=== PATIENT | female | born 2000 | race Caucasian/White ===

== ENCOUNTER 2022-11-06 11:29 | Emergency (ER) | payer OTHER ==
[~2022-11-06] VITALS: Ht 149.9 cm; Wt 104.0 kg
[2022-11-06] MEDS ORDERED: ALBU8.5H (11:55)
[2022-11-06] MEDS ORDERED: ESCITALOPRAM PO (11:55)
[2022-11-06] MEDS ORDERED: FERR325T19 (11:55)
[2022-11-06] MEDS ORDERED: TRAZ-252 (11:55)
[2022-11-06] MEDS ORDERED: ASPIRIN 325 MG TAB PO ONE (12:10)
[2022-11-06] MEDS ORDERED: NS 500 ML IV ONE (12:15)
[2022-11-06 13:02] LABS: BASO % 0.1 % (0.0-1.0); HEMOGLOBIN 12.6 g/dl (12.0-15.5); LYMPH # 1.3 10^3/uL (1.5-5.0); LYMPH % 17.1 % (24.0-44.0); MEAN CORPUSCULAR HEMOGLOBIN 24.9 pg (27.0-33.0); MEAN CORPUSCULAR HGB CONC 31.5 g/dl (32.0-36.5); MEAN CORPUSCULAR VOLUME 79.1 fl (80.0-96.0); MONO # 0.7 10^3/uL (0.0-0.8); MONO % 9.2 % (2.0-8.0); NEUTROPHILS # 5.7 10^3/uL (1.5-8.5); NEUTROPHILS % 73.1 % (36.0-66.0); PLATELET COUNT, AUTOMATED 307 10^3/uL (150-450); RED BLOOD COUNT 5.06 10^6/uL (4.00-5.40); WHITE BLOOD COUNT 7.8 10^3/uL (4.0-10.0)
[2022-11-06 13:12] LABS: RSV AMPLIFICATION NEGATIVE (NEGATIVE)
[2022-11-06 13:19] LABS: LIPASE 27 U/L (12-53)
[2022-11-06 13:20] LABS: CK-MB VALUE MASS < 1.0 NG/ML (<3.6)
[2022-11-06 13:21] LABS: ALBUMIN 4.1 G/DL (3.2-5.2); ALKALINE PHOSPHATASE 67 U/L (46-116); ALT/SGPT 18 U/L (7.0-40); AST/SGOT 9 U/L (<34); BILIRUBIN,DIRECT 0.2 MG/DL (<0.4); BILIRUBIN,TOTAL 0.4 MG/DL (0.3-1.2); BLOOD UREA NITROGEN 12 MG/DL (9-23); CALCIUM LEVEL 8.6 MG/DL (8.5-10.1); CARBON DIOXIDE LEVEL 23 MMOL/L (20-31); CHLORIDE LEVEL 105 MMOL/L (98-107); CREATININE FOR GFR 0.66 MG/DL (0.55-1.30); GLUCOSE, FASTING 90 MG/DL (60-100); INR 1.03; POTASSIUM SERUM 3.8 MMOL/L (3.5-5.1); PROTHROMBIN TIME 13.7 SECONDS (12.5-14.5); SODIUM LEVEL 137 MMOL/L (136-145); TOTAL PROTEIN 7.7 G/DL (5.7-8.2)
[2022-11-06 13:22] LABS: CPK CREATINE PHOSPHOKINASE 109 U/L (34-145); MB/CK RELATIVE INDEX 0.91 (< OR =4); PARTIAL THROMBOPLASTIN TIME 31.7 SECONDS (24.8-34.2)
[2022-11-06 14:01] LABS: HCG, SERUM QUALITATIVE NEGATIVE (NEGATIVE)
[2022-11-06] MEDS ORDERED: ISOVUE-370 76% 100ML VIAL As Ordered ONE (14:06)
[2022-11-06 15:49] VITALS: BP 125/76
== END 2022-11-06 15:55 | disposition home or self-care (01) ==
LOC: M ED 11:29
DX: R07.9 Chest pain, unspecified (principal); R00.0 Tachycardia, unspecified; F51.01 Primary insomnia; F41.9 Anxiety disorder, unspecified; D64.9 Anemia, unspecified; Z79.52 Long term (current) use of systemic steroids; Z79.899 Other long term (current) drug therapy

== ENCOUNTER 2023-05-03 10:39 | Emergency (ER) | payer OTHER ==
[~2023-05-03] VITALS: Ht 149.9 cm; Wt 96.6 kg
[~2023-05-03 10:39] MED LIST: ALBU8.5H; ESCITALOPRAM PO; FERR325T19; TRAZ-252
[2023-05-03] MEDS: IBUPROFEN 600MG TAB PO ONE (12:22)
[2023-05-03 12:25] LABS: RSV AMPLIFICATION NEGATIVE (NEGATIVE)
[2023-05-03] MEDS ORDERED: AMOX875T2 PO (13:30)
[2023-05-03 13:45] VITALS: BP 119/70; TEMP 99.3; O2SAT 97
== END 2023-05-03 13:47 | disposition home or self-care (01) ==
LOC: M ED 10:39
DX: J02.0 Streptococcal pharyngitis (principal); F41.9 Anxiety disorder, unspecified; F32.A Depression, unspecified; Z79.2 Long term (current) use of antibiotics; Z79.52 Long term (current) use of systemic steroids; Z79.899 Other long term (current) drug therapy

== ENCOUNTER 2023-05-04 00:37 | Emergency (ER) | payer OTHER ==
[~2023-05-04] VITALS: Ht 149.9 cm; Wt 96.6 kg
[~2023-05-04 00:37] MED LIST changes: +AMOX875T2 PO
[2023-05-04 02:46] VITALS: BP 132/86; TEMP 98.8; O2SAT 100
== END 2023-05-04 05:34 | disposition left against medical advice (07) ==
LOC: M ED 00:37
DX: Z53.21 Procedure and treatment not carried out due to patient leaving prior to being seen by health care provider (principal)

== ENCOUNTER 2023-07-30 05:19 | Emergency (ER) | payer OTHER, SELFPAY ==
[~2023-07-30] VITALS: Ht 149.9 cm; Wt 96.1 kg
[2023-07-30 07:10] LABS: RSV AMPLIFICATION NEGATIVE (NEGATIVE)
[2023-07-30] MEDS ORDERED: IBUPROFEN 800 MG TAB PO ONE (07:25)
[2023-07-30] MEDS ORDERED: NS 1,000 ML IV ONE ×2 (07:35→09:35)
[2023-07-30] MEDS ORDERED: BENZONATATE 100MG CAPSULE PO ONE (07:35)
[2023-07-30] MEDS ORDERED: OSELTAMIVIR PHOSPHATE 75 MG CAP (TAMIFLU) PO ONE (07:35)
[2023-07-30] MEDS ORDERED: ONDANSETRON 4MG 2ML VIAL IV ONE (07:35)
[2023-07-30 08:07] LABS: BASO % 0.6 % (0.0-1.0); HEMATOCRIT 36.5 % (36.0-47.0); HEMOGLOBIN 11.9 g/dl (12.0-15.5); LYMPH # 0.2 10^3/uL (1.5-5.0); LYMPH % 4.1 % (24.0-44.0); MEAN CORPUSCULAR HEMOGLOBIN 26.4 pg (27.0-33.0); MEAN CORPUSCULAR HGB CONC 32.6 g/dl (32.0-36.5); MEAN CORPUSCULAR VOLUME 81.1 fl (80.0-96.0); MONO # 0.7 10^3/uL (0.0-0.8); MONO % 12.2 % (2.0-8.0); NEUTROPHILS # 4.5 10^3/uL (1.5-8.5); NEUTROPHILS % 82.4 % (36.0-66.0); PLATELET COUNT, AUTOMATED 264 10^3/uL (150-450); WHITE BLOOD COUNT 5.4 10^3/uL (4.0-10.0)
[2023-07-30 08:25] LABS: BLOOD UREA NITROGEN 6 MG/DL (9-23); CALCIUM LEVEL 8.6 MG/DL (8.5-10.1); CARBON DIOXIDE LEVEL 25 MMOL/L (20-31); CHLORIDE LEVEL 103 MMOL/L (98-107); CREATININE FOR GFR 0.62 MG/DL (0.55-1.30); GLUCOSE, FASTING 95 MG/DL (60-100); POTASSIUM SERUM 3.8 MMOL/L (3.5-5.1); SODIUM LEVEL 137 MMOL/L (136-145)
[2023-07-30] MEDS ORDERED: ONDA4TAB6 PO (10:33)
[2023-07-30] MEDS ORDERED: OSEL75CA PO (10:33)
[2023-07-30 10:46] VITALS: BP 100/70; TEMP 98.6; O2SAT 100
== END 2023-07-30 11:09 | disposition home or self-care (01) ==
LOC: M ED 05:19
DX: J09.X2 Influenza due to identified novel influenza A virus with other respiratory manifestations (principal); J45.909 Unspecified asthma, uncomplicated; R51.9 Headache, unspecified; Z79.52 Long term (current) use of systemic steroids; Z79.83 Long term (current) use of bisphosphonates; Z79.899 Other long term (current) drug therapy
CPT/HCPCS: 71045; 80048; 84702; 85025; 87631; 96361; 96374; 99284; J2405

== ENCOUNTER 2023-08-07 13:49 | Observation (INO) | payer SELFPAY ==
[~2023-08-07] VITALS: Ht 149.9 cm; Wt 95.9 kg
[~2023-08-07 13:49] MED LIST changes: -ALBU8.5H; +ALBU8.5H INH; -FERR325T19; +FERR325T19 PO; +ONDA4TAB6 PO; +OSEL75CA PO; -TRAZ-252; +TRAZ-252 PO
[2023-08-07] MEDS ORDERED: NS 1,000 ML IV ONE (14:35)
[2023-08-07] MEDS ORDERED: METOCLOPRAMIDE INJ 10MG/2ML VIAL IV ONE (14:40)
[2023-08-07 15:48] LABS: BASO % 0.2 % (0.0-1.0); HEMATOCRIT 36.8 % (36.0-47.0); LYMPH # 2.2 10^3/uL (1.5-5.0); LYMPH % 14.8 % (24.0-44.0); MEAN CORPUSCULAR HGB CONC 32.6 g/dl (32.0-36.5); MEAN CORPUSCULAR VOLUME 79.8 fl (80.0-96.0); MONO # 1.2 10^3/uL (0.0-0.8); MONO % 8.3 % (2.0-8.0); NEUTROPHILS # 11.1 10^3/uL (1.5-8.5); NEUTROPHILS % 76.4 % (36.0-66.0); PLATELET COUNT, AUTOMATED 340 10^3/uL (150-450); RED BLOOD COUNT 4.61 10^6/uL (4.00-5.40); WHITE BLOOD COUNT 14.5 10^3/uL (4.0-10.0)
[2023-08-07 16:45] LABS: ALBUMIN 3.6 G/DL (3.2-5.2); ALKALINE PHOSPHATASE 74 U/L (46-116); ALT/SGPT 117 U/L (7.0-40); AST/SGOT 31 U/L (<34); BILIRUBIN,DIRECT 0.2 MG/DL (<0.4); BILIRUBIN,TOTAL 0.5 MG/DL (0.3-1.2); BLOOD UREA NITROGEN 8 MG/DL (9-23); CALCIUM LEVEL 8.6 MG/DL (8.5-10.1); CARBON DIOXIDE LEVEL 27 MMOL/L (20-31); CHLORIDE LEVEL 103 MMOL/L (98-107); CPK CREATINE PHOSPHOKINASE 122 U/L (34-145); CREATININE FOR GFR 0.61 MG/DL (0.55-1.30); GLUCOSE, FASTING 90 MG/DL (60-100); LIPASE 45 U/L (12-53); POTASSIUM SERUM 3.9 MMOL/L (3.5-5.1); SODIUM LEVEL 139 MMOL/L (136-145); THYROID STIMULATING HORMONE 1.396 uIU/ML (0.48-4.17); TOTAL PROTEIN 7.6 G/DL (5.7-8.2)
[2023-08-07 16:58] LABS: HCG, SERUM QUALITATIVE NEGATIVE (NEGATIVE)
[2023-08-07] MEDS ORDERED: NS 1,000 ML IV SCH (17:05)
[2023-08-07] MEDS ORDERED: ISOVUE-370 76% 100ML VIAL As Ordered ONE (17:11)
[2023-08-07] MEDS ORDERED: cefTRIAXone SOD 2 GM in D5W MINI-BAG PLUS 50 ML IV ONE (18:20)
[2023-08-07] MEDS ORDERED: ONDA4TAB6 PO (18:51)
[2023-08-07] MEDS ORDERED: LEXA1TAB2 PO (18:51)
[2023-08-07] MEDS ORDERED: HOME MED LIST COMPLETE! XX SCH (18:55)
[2023-08-07] MEDS ORDERED: ONDANSETRON 4MG 2ML VIAL IV PRN (19:40)
[2023-08-07] MEDS ORDERED: ALBUTEROL 90 MCG/ACT 8GM HFA INHALER INH PRN (19:40)
[2023-08-07] MEDS ORDERED: guaiFENesin DM LIQ 10ML UD PO PRN (19:40)
[2023-08-07] MEDS ORDERED: ACETAMINOPHEN TAB 650MG DOSE (2X325MG) PO PRN (19:40)
[2023-08-07] MEDS ORDERED: CEPACOL LOZENGE PO PRN (19:40)
[2023-08-07 21:00] VITALS: BP 122/67; TEMP 99.7; O2SAT 100
[2023-08-07] MEDS ORDERED: traZODone 25MG PER 1/2 TABLET PO SCH (21:00)
[2023-08-07] MEDS: LR 1,000 ML IV SCH (21:23)
[2023-08-07] MEDS: AUGMENTIN 875 MG TAB PO SCH (21:32)
[2023-08-07] MEDS ORDERED: KETOROLAC 30 MG/ML 1ML VIAL IV ONE (23:40)
[2023-08-07 23:45] VITALS: TEMP 100.4
[2023-08-08] MEDS: LR 1,000 ML IV SCH (04:07)
[2023-08-08 04:09] VITALS: BP 113/65; TEMP 98.6; O2SAT 99
[2023-08-08] MEDS: AUGMENTIN 875 MG TAB PO SCH (08:29)
[2023-08-08] MEDS ORDERED: ESCITALOPRAM OXALATE 10 MG TAB (LEXAPRO) PO SCH (09:00)
[2023-08-08] MEDS ORDERED: FERROUS SULFATE 325MG TAB PO SCH (09:00)
[2023-08-08 09:27] LABS: BASO % 0.1 % (0.0-1.0); EOS % 0.1 % (0.0-3.0); HEMATOCRIT 32.2 % (36.0-47.0); HEMOGLOBIN 10.4 g/dl (12.0-15.5); LYMPH % 14.3 % (24.0-44.0); MEAN CORPUSCULAR HEMOGLOBIN 25.7 pg (27.0-33.0); MEAN CORPUSCULAR HGB CONC 32.3 g/dl (32.0-36.5); MEAN CORPUSCULAR VOLUME 79.7 fl (80.0-96.0); MONO # 1.5 10^3/uL (0.0-0.8); MONO % 10.8 % (2.0-8.0); NEUTROPHILS # 10.4 10^3/uL (1.5-8.5); NEUTROPHILS % 74.3 % (36.0-66.0); PLATELET COUNT, AUTOMATED 309 10^3/uL (150-450); RED BLOOD COUNT 4.04 10^6/uL (4.00-5.40)
[2023-08-08] MEDS ORDERED: ACET1TAB55 PO (09:29)
[2023-08-08] MEDS ORDERED: IBUP-1022 PO (09:29)
[2023-08-08] MEDS ORDERED: AMOX875T2 PO (09:29)
[2023-08-08 09:48] LABS: BLOOD UREA NITROGEN 7 MG/DL (9-23); CALCIUM LEVEL 8.4 MG/DL (8.5-10.1); CARBON DIOXIDE LEVEL 23 MMOL/L (20-31); CHLORIDE LEVEL 104 MMOL/L (98-107); CREATININE FOR GFR 0.54 MG/DL (0.55-1.30); GLUCOSE, FASTING 110 MG/DL (60-100); MAGNESIUM LEVEL 1.9 MG/DL (1.8-2.4); POTASSIUM SERUM 3.6 MMOL/L (3.5-5.1); SODIUM LEVEL 136 MMOL/L (136-145)
[2023-08-08] MEDS ORDERED: ONDA-83 PO (09:57)
== END 2023-08-08 11:18 | disposition home or self-care (01) ==
LOC: M ED 13:49 → INTOOBSV 19:38 → M ED INP 19:38 → M MSPAV 20:58
PROVIDERS: ADMIT Internal Medicine; ATTEND Internal Medicine
DX: R00.0 Tachycardia, unspecified (principal); H65.01 Acute serous otitis media, right ear; J01.90 Acute sinusitis, unspecified; J45.909 Unspecified asthma, uncomplicated; F41.9 Anxiety disorder, unspecified; F32.A Depression, unspecified; Z79.899 Other long term (current) drug therapy
CPT/HCPCS: 36415; 70450; 70491; 71275; 74177; 80048; 80076; 81001; 82550; 83605; 83690; 83735; 84443; 84703; 85025; 87040; 87486; 87581; 87633; 87798; 87880; 93005; 93041; 94760; 96361; 96365; 96375; 99285; J0696; J1885; J2405; J2765; Q9967

== ENCOUNTER → 2023-12-19 | Outpatient (CLI) | payer OTHER ==
[~2023-12-19] MED LIST changes: +ACET1TAB55 PO; +IBUP-1022 PO; +LEXA1TAB2 PO; +ONDA-83 PO
[2023-12-19 14:07] LABS: HEMATOCRIT 36.3 % (36.0-47.0); HEMOGLOBIN 11.8 g/dl (12.0-15.5); MEAN CORPUSCULAR HEMOGLOBIN 25.3 pg (27.0-33.0); MEAN CORPUSCULAR HGB CONC 32.5 g/dl (32.0-36.5); MEAN CORPUSCULAR VOLUME 77.9 fl (80.0-96.0); PLATELET COUNT, AUTOMATED 305 10^3/uL (150-450); RED BLOOD COUNT 4.66 10^6/uL (4.00-5.40); WHITE BLOOD COUNT 9.1 10^3/uL (4.0-10.0)
[2023-12-19 15:14] LABS: HIV 1&2 SCREEN NEGATIVE (NEGATIVE)
[2023-12-19 15:22] LABS: HEPATITIS C VIRUS ABY INDEX < 0.02 INDEX (<0.8)
[2023-12-19 15:29] LABS: GC DNA AMPLIFICATION NEGATIVE (NEGATIVE)
== END ==
LOC: M PLALAB 10:29
PROVIDERS: ATTEND Advanced Practice Midwife
DX: Z34.01 Encounter for supervision of normal first pregnancy, first trimester (principal)

== ENCOUNTER 2024-01-25 19:24 | Emergency (ER) | payer OTHER ==
[~2024-01-25] VITALS: Ht 149.9 cm; Wt 93.5 kg
[2024-01-25] MEDS ORDERED: PREN1TAB18 PO (19:30)
[2024-01-25] MEDS ORDERED: HEAL1TAB6 PO (19:30)
[2024-01-25 21:18] LABS: BASO % 0.3 % (0.0-1.0); EOS % 0.4 % (0.0-3.0); HEMATOCRIT 35.9 % (36.0-47.0); LYMPH # 2.1 10^3/uL (1.5-5.0); LYMPH % 19.3 % (24.0-44.0); MEAN CORPUSCULAR HGB CONC 33.4 g/dl (32.0-36.5); MEAN CORPUSCULAR VOLUME 77.9 fl (80.0-96.0); MONO % 9.1 % (2.0-8.0); NEUTROPHILS # 7.6 10^3/uL (1.5-8.5); NEUTROPHILS % 70.5 % (36.0-66.0); PLATELET COUNT, AUTOMATED 309 10^3/uL (150-450); RED BLOOD COUNT 4.61 10^6/uL (4.00-5.40); WHITE BLOOD COUNT 10.7 10^3/uL (4.0-10.0)
[2024-01-25 21:42] LABS: ALBUMIN 3.1 G/DL (3.2-5.2); ALKALINE PHOSPHATASE 58 U/L (46-116); ALT/SGPT 19 U/L (7.0-40); AST/SGOT 14 U/L (<34); BILIRUBIN,DIRECT < 0.1 MG/DL (<0.4); BILIRUBIN,TOTAL 0.2 MG/DL (0.3-1.2); BLOOD UREA NITROGEN 7 MG/DL (9-23); CALCIUM LEVEL 8.9 MG/DL (8.5-10.1); CARBON DIOXIDE LEVEL 24 MMOL/L (20-31); CHLORIDE LEVEL 104 MMOL/L (98-107); CREATININE FOR GFR 0.49 MG/DL (0.55-1.30); GLOMERULAR FILTRATION RATE > 60.0 (>60); GLUCOSE, FASTING 78 MG/DL (60-100); SODIUM LEVEL 137 MMOL/L (136-145); TOTAL PROTEIN 7.1 G/DL (5.7-8.2)
[2024-01-25 23:08] LABS: HCG, SERUM QUANTITATIVE 39019.7 MIU/ML (<4.2)
[2024-01-25 23:11] VITALS: BP 129/77; TEMP 98.2; O2SAT 99
== END 2024-01-25 23:13 | disposition home or self-care (01) ==
LOC: M ED 19:24
DX: O26.892 Other specified pregnancy related conditions, second trimester (principal); R10.2 Pelvic and perineal pain; F41.9 Anxiety disorder, unspecified; F32.A Depression, unspecified; Z3A.16 16 weeks gestation of pregnancy; Z79.810 Long term (current) use of selective estrogen receptor modulators (SERMs)

== ENCOUNTER → 2024-02-07 | Outpatient (CLI) | payer OTHER ==
[~2024-02-07] MED LIST changes: +HEAL1TAB6 PO; +PREN1TAB18 PO
== END ==
LOC: M WHC 12:58
PROVIDERS: ATTEND Obstetrics & Gynecology
DX: Z34.92 Encounter for supervision of normal pregnancy, unspecified, second trimester (principal); Z3A.18 18 weeks gestation of pregnancy

== ENCOUNTER 2024-03-19 20:38 | Emergency (ER) | payer OTHER ==
[2024-03-19 20:38] VITALS: BP 135/86; TEMP 97.9; O2SAT 100
[~2024-03-19 20:38] MED LIST changes: +ONDA-282 PO; -ONDA4TAB6 PO
[2024-03-19] MEDS ORDERED: ESCI5SOL3 PO (21:07)
[2024-03-19] MEDS ORDERED: ONDANSETRON 4MG 2ML VIAL IV PRN (21:15)
[2024-03-19] MEDS ORDERED: LR 1,000 ML IV ONE (21:15)
[2024-03-19] MEDS ORDERED: MORPHINE 4 MG/ML 1ML VIAL IV ONE (22:00)
== END 2024-03-19 20:40 | disposition admitted as inpatient to this hospital (09) ==
LOC: M ED 20:38
DX: Z53.21 Procedure and treatment not carried out due to patient leaving prior to being seen by health care provider (principal)

== ENCOUNTER 2024-03-19 20:52 | Outpatient (CLI) | payer OTHER ==
[~2024-03-19] VITALS: Ht 152.4 cm; Wt 97.0 kg
[2024-03-19 21:03] VITALS: BP 93/50; O2SAT 99
[2024-03-19] MEDS ORDERED: ESCI5SOL3 PO (21:07)
[2024-03-19] MEDS ORDERED: HOME MED LIST COMPLETE! XX SCH (21:10)
[2024-03-19] MEDS: LR 1,000 ML IV ONE (21:37)
[2024-03-19] MEDS: ONDANSETRON 4MG 2ML VIAL IV SCH (21:37)
[2024-03-19 21:56] LABS: AMORPHOUS SEDIMENT SMALL (NEGATIVE); APPEARANCE, URINE HAZY (CLEAR); BACTERIA, URINE AUTO NEGATIVE (NEGATIVE); BILIRUBIN, URINE AUTO NEGATIVE (NEGATIVE); BLOOD, URINE BLOOD 2+ (NEGATIVE); COLOR, URINE YELLOW (YELLOW); GLUCOSE, URINE (UA) AUTO NEGATIVE (NEGATIVE); KETONE, URINE AUTO NEGATIVE (NEGATIVE); LEUKOCYTE ESTERASE, URINE AUTO NEGATIVE (NEGATIVE); MUCUS, URINE SMALL (NEGATIVE); NITRITE, URINE AUTO NEGATIVE (NEGATIVE); PROTEIN, URINE AUTO NEGATIVE (NEGATIVE); RBC, URINE AUTO 101 /HPF (0-3); SPECIFIC GRAVITY URINE AUTO 1.018 (1.002-1.035); SQUAMOUS EPITHELIAL CELL UR AU 5 /HPF (0-6); WBC, URINE AUTO 5 /HPF (0-3)
[2024-03-19 21:59] LABS: HEMOGLOBIN 10.7 g/dl (12.0-15.5); MEAN CORPUSCULAR HEMOGLOBIN 25.8 pg (27.0-33.0); MEAN CORPUSCULAR HGB CONC 33.4 g/dl (32.0-36.5); MEAN CORPUSCULAR VOLUME 77.3 fl (80.0-96.0); PLATELET COUNT, AUTOMATED 364 10^3/uL (150-450); RED BLOOD COUNT 4.14 10^6/uL (4.00-5.40)
[2024-03-19] MEDS ORDERED: MORPHINE 4 MG/ML 1ML VIAL IV PRN (22:00)
[2024-03-19 22:14] LABS: ALKALINE PHOSPHATASE 79 U/L (46-116); ALT/SGPT 21 U/L (7.0-40); AST/SGOT 13 U/L (<34); BILIRUBIN,TOTAL 0.2 MG/DL (0.3-1.2); BLOOD UREA NITROGEN 7 MG/DL (9-23); CALCIUM LEVEL 9.1 MG/DL (8.5-10.1); CARBON DIOXIDE LEVEL 22 MMOL/L (20-31); CHLORIDE LEVEL 108 MMOL/L (98-107); CREATININE FOR GFR 0.51 MG/DL (0.55-1.30); GLOMERULAR FILTRATION RATE > 60.0 (>60); GLUCOSE, FASTING 86 MG/DL (60-100); SODIUM LEVEL 138 MMOL/L (136-145); TOTAL PROTEIN 6.9 G/DL (5.7-8.2)
[2024-03-19] MEDS: MORPHINE 4 MG/ML 1ML VIAL IV PRN (22:14)
[2024-03-19 22:46] VITALS: BP 120/58
[2024-03-19] MEDS ORDERED: BUTORPHANOL 2 MG/ML 1ML VIAL IV ONE (23:25)
[2024-03-19] MEDS ORDERED: PROMETHAZINE 25MG/ML 1ML VIAL IV ONE (23:25)
[2024-03-20 04:08] VITALS: BP 93/54
[2024-03-20 08:18] VITALS: BP 101/58
== END 2024-03-20 11:12 | disposition home or self-care (01) ==
LOC: M LDO 20:52
PROVIDERS: ATTEND Advanced Practice Midwife
DX: O26.892 Other specified pregnancy related conditions, second trimester (principal); O99.212 Obesity complicating pregnancy, second trimester; O99.342 Other mental disorders complicating pregnancy, second trimester; O99.512 Diseases of the respiratory system complicating pregnancy, second trimester; R10.32 Left lower quadrant pain; E66.9 Obesity, unspecified; F41.9 Anxiety disorder, unspecified; F32.A Depression, unspecified; J45.909 Unspecified asthma, uncomplicated; Z3A.24 24 weeks gestation of pregnancy
CPT/HCPCS: 59025; 76775; 80053; 81001; 85027; 96374; 96375; G0463; J2405

== ENCOUNTER → 2024-03-21 | Outpatient (CLI) | payer OTHER ==
[~2024-03-21] MED LIST changes: +ESCI5SOL3 PO
== END ==
LOC: M WHC 11:16
PROVIDERS: ATTEND Advanced Practice Midwife
DX: Z34.02 Encounter for supervision of normal first pregnancy, second trimester (principal)

== ENCOUNTER → 2024-04-05 | Outpatient (CLI) | payer OTHER ==
[2024-04-05 17:31] LABS: HEMOGLOBIN 10.4 g/dl (12.0-15.5); MEAN CORPUSCULAR HEMOGLOBIN 25.7 pg (27.0-33.0); MEAN CORPUSCULAR HGB CONC 32.5 g/dl (32.0-36.5); PLATELET COUNT, AUTOMATED 358 10^3/uL (150-450); RED BLOOD COUNT 4.05 10^6/uL (4.00-5.40); WHITE BLOOD COUNT 12.1 10^3/uL (4.0-10.0)
== END ==
LOC: M PLALAB 14:56
PROVIDERS: ATTEND Advanced Practice Midwife
DX: Z34.02 Encounter for supervision of normal first pregnancy, second trimester (principal)

== ENCOUNTER 2024-04-14 23:07 | Outpatient (CLI) | payer OTHER ==
[~2024-04-14] VITALS: Ht 149.9 cm; Wt 95.0 kg
[2024-04-14 23:18] VITALS: BP 119/71
[2024-04-15 00:20] LABS: HEMATOCRIT 32.6 % (36.0-47.0); HEMOGLOBIN 10.8 g/dl (12.0-15.5); MEAN CORPUSCULAR HEMOGLOBIN 25.9 pg (27.0-33.0); MEAN CORPUSCULAR HGB CONC 33.1 g/dl (32.0-36.5); MEAN CORPUSCULAR VOLUME 78.2 fl (80.0-96.0); PLATELET COUNT, AUTOMATED 380 10^3/uL (150-450); RED BLOOD COUNT 4.17 10^6/uL (4.00-5.40); WHITE BLOOD COUNT 12.7 10^3/uL (4.0-10.0)
[2024-04-15] MEDS: PROMETHAZINE 25MG/ML 1ML VIAL IV ONE (00:20)
[2024-04-15] MEDS: MORPHINE 4 MG/ML 1ML VIAL IV ONE (00:20)
[2024-04-15 00:48] LABS: APPEARANCE, URINE HAZY (CLEAR); BACTERIA, URINE AUTO NEGATIVE (NEGATIVE); BILIRUBIN, URINE AUTO NEGATIVE (NEGATIVE); BLOOD, URINE BLOOD NEGATIVE (NEGATIVE); COLOR, URINE YELLOW (YELLOW); GLUCOSE, URINE (UA) AUTO NEGATIVE (NEGATIVE); KETONE, URINE AUTO 1+ mg/dL (NEGATIVE); LEUKOCYTE ESTERASE, URINE AUTO TRACE (NEGATIVE); MUCUS, URINE SMALL (NEGATIVE); NITRITE, URINE AUTO NEGATIVE (NEGATIVE); PROTEIN, URINE AUTO NEGATIVE (NEGATIVE); RBC, URINE AUTO 19 /HPF (0-3); SPECIFIC GRAVITY URINE AUTO 1.013 (1.002-1.035); SQUAMOUS EPITHELIAL CELL UR AU 5 /HPF (0-6); UROBILINOGEN, URINE AUTO 0.2 mg/dL (0.0-2.0); WBC, URINE AUTO 12 /HPF (0-3)
[2024-04-15] MEDS ORDERED: MACR100C43 PO (05:02)
== END 2024-04-15 05:00 | disposition home or self-care (01) ==
LOC: M LDO 23:07
PROVIDERS: ATTEND Obstetrics & Gynecology
DX: O26.893 Other specified pregnancy related conditions, third trimester (principal); M54.89 Other dorsalgia; Z87.442 Personal history of urinary calculi; Z3A.28 28 weeks gestation of pregnancy
CPT/HCPCS: 59025; 76775; 81001; 85027; G0463; J2550

== ENCOUNTER 2024-06-04 01:35 | Outpatient (CLI) | payer OTHER ==
[~2024-06-04] VITALS: Ht 149.9 cm; Wt 97.3 kg
[~2024-06-04 01:35] MED LIST changes: +MACR100C43 PO
[2024-06-04] MEDS ORDERED: ACET500P3 PO (01:52)
[2024-06-04] MEDS ORDERED: HOME MED LIST COMPLETE! XX SCH (01:55)
[2024-06-04 01:58] VITALS: BP 116/70
[2024-06-04 02:58] LABS: HEMATOCRIT 33.2 % (36.0-47.0); HEMOGLOBIN 10.6 g/dl (12.0-15.5); MEAN CORPUSCULAR HEMOGLOBIN 24.3 pg (27.0-33.0); MEAN CORPUSCULAR HGB CONC 31.9 g/dl (32.0-36.5); MEAN CORPUSCULAR VOLUME 76.1 fl (80.0-96.0); PLATELET COUNT, AUTOMATED 369 10^3/uL (150-450); RED BLOOD COUNT 4.36 10^6/uL (4.00-5.40); WHITE BLOOD COUNT 9.2 10^3/uL (4.0-10.0)
[2024-06-04] MEDS: PROMETHAZINE 25MG/ML 1ML VIAL IV ONE (03:15)
[2024-06-04] MEDS: MORPHINE 4 MG/ML 1ML VIAL IV ONE (03:16)
[2024-06-04] MEDS: LR 1,000 ML IV ONE (03:17)
[2024-06-04 03:20] LABS: ALBUMIN 2.6 G/DL (3.2-5.2); ALKALINE PHOSPHATASE 134 U/L (46-116); ALT/SGPT 32 U/L (7.0-40); AST/SGOT 23 U/L (<34); BILIRUBIN,TOTAL 0.2 MG/DL (0.3-1.2); BLOOD UREA NITROGEN 7 MG/DL (9-23); CALCIUM LEVEL 9.3 MG/DL (8.5-10.1); CARBON DIOXIDE LEVEL 20 MMOL/L (20-31); CHLORIDE LEVEL 110 MMOL/L (98-107); CREATININE FOR GFR 0.48 MG/DL (0.55-1.30); GLOMERULAR FILTRATION RATE > 60.0 (>60); GLUCOSE, FASTING 114 MG/DL (60-100); POTASSIUM SERUM 4.2 MMOL/L (3.5-5.1); SODIUM LEVEL 138 MMOL/L (136-145); TOTAL PROTEIN 6.7 G/DL (5.7-8.2)
[2024-06-04 06:01] VITALS: BP 103/64
== END 2024-06-04 10:50 | disposition home or self-care (01) ==
LOC: M LDO 01:35
PROVIDERS: ATTEND Advanced Practice Midwife
DX: O26.833 Pregnancy related renal disease, third trimester (principal); O99.513 Diseases of the respiratory system complicating pregnancy, third trimester; O99.343 Other mental disorders complicating pregnancy, third trimester; N20.0 Calculus of kidney; F41.9 Anxiety disorder, unspecified; J45.909 Unspecified asthma, uncomplicated; Z3A.35 35 weeks gestation of pregnancy
CPT/HCPCS: 59025; 76775; 76815; 76817; 76820; 80053; 81001; 85027; 87081; 96374; 96376; G0463; J2550

== ENCOUNTER 2024-07-06 15:37 | Inpatient (IN) | payer OTHER ==
[~2024-07-06] VITALS: Ht 149.9 cm; Wt 98.9 kg
[~2024-07-06 15:37] MED LIST changes: +ACET500P3 PO
[2024-07-06 15:56] VITALS: BP 130/82
[2024-07-06] MEDS ORDERED: HOME MED LIST COMPLETE! XX SCH (16:20)
[2024-07-06] MEDS ORDERED: TRANEXAMIC ACID INJection 1,000 MG in NS 100 ML IV PRN (17:35)
[2024-07-06] MEDS ORDERED: OXYTOCIN DRIP 30 UNITS in IV 1 EA IV PRN (17:35)
[2024-07-06] MEDS ORDERED: LIDOCAINE 1% MDV 20ML VIAL INFIL PRN (17:35)
[2024-07-06] MEDS ORDERED: METHYLERGONOVINE MALEATE 0.2MG/ML 1ML VIAL IM PRN (17:35)
[2024-07-06] MEDS: miSOPROStol 50MCG 1/2 TABLET PO SCH (17:45)
[2024-07-06 18:11] LABS: HEMATOCRIT 35.5 % (36.0-47.0); HEMOGLOBIN 11.2 g/dl (12.0-15.5); MEAN CORPUSCULAR HEMOGLOBIN 23.3 pg (27.0-33.0); MEAN CORPUSCULAR HGB CONC 31.5 g/dl (32.0-36.5); MEAN CORPUSCULAR VOLUME 73.8 fl (80.0-96.0); PLATELET COUNT, AUTOMATED 371 10^3/uL (150-450); RED BLOOD COUNT 4.81 10^6/uL (4.00-5.40); WHITE BLOOD COUNT 10.4 10^3/uL (4.0-10.0)
[2024-07-06 19:25] LABS: HEPATITIS C VIRUS ABY INDEX 0.03 INDEX (<0.8)
[2024-07-06 21:45] VITALS: BP 118/71
[2024-07-06 22:50] VITALS: BP 116/71
[2024-07-07] VITALS (47 sets, daily range): BP systolic 97–138; BP diastolic 55–87; TEMP 97.2; O2SAT 97
[2024-07-07] MEDS: BUTORPHANOL 2 MG/ML 1ML VIAL IV ONE (01:57)
[2024-07-07] MEDS: PROMETHAZINE 25MG/ML 1ML VIAL IV ONE (01:57)
[2024-07-07] MEDS ORDERED: diphenhydrAMINE 50MG/ML VIAL IV PRN ×2 (09:55→21:00)
[2024-07-07] MEDS ORDERED: EPIDURAL/PCA KEYS XX PRN (09:55)
[2024-07-07] MEDS ORDERED: ONDANSETRON 4MG 2ML VIAL IV PRN (09:55)
[2024-07-07] MEDS ORDERED: LR 500 ML IV PRN (09:55)
[2024-07-07] MEDS ORDERED: NALOXONE INJ 0.4MG/1ML VIAL IV PRN ×3 (09:55→21:00)
[2024-07-07] MEDS: FENTANYL/ROPIVACAINE/NACL BAG 100 ML EPIDURAL SCH (10:35)
[2024-07-07] MEDS: LR 1,000 ML IV SCH (11:29)
[2024-07-07] MEDS: OXYTOCIN DRIP 30 UNITS in IV 1 EA IV SCH ×2 (11:29→21:55)
[2024-07-07] MEDS: ePHEDrine SULFATE 25 MG/5 ML(5MG/ML) SYRINGE IVP PRN (12:31)
[2024-07-07] MEDS: ACETAMINOPHEN 500 MG TAB PO PRN (17:40)
[2024-07-07] MEDS: AZITHROMYCIN INJ 500 MG, VIAL MATE ADAPTER 1 EACH in NS 250 ML IV ONE (20:15)
[2024-07-07] MEDS: ceFAZolin SOD 2 GM in IV 1 EA IV ONE (20:15)
[2024-07-07] MEDS: BICITRA 30ML SOLN UDC PO ONE (20:15)
[2024-07-07] MEDS: NORCO, ANEXSIA 5/325MG TABLET (HYDROcodone/ACETAMINOPHEN) PO ONE (21:00)
[2024-07-07] MEDS: SLF 3 ML SYR IV SCH (21:00)
[2024-07-07] MEDS ORDERED: METOCLOPRAMIDE INJ 10MG/2ML VIAL IV PRN (21:00)
[2024-07-07] MEDS ORDERED: **NOTE PATIENT COMMENT** MISC XX SCH (21:00)
[2024-07-07] MEDS ORDERED: LIDOCAINE 2% W/EPINEPHRINE 20ML VIAL **PRES FREE As Ordered ONE (21:15)
[2024-07-07] MEDS ORDERED: OXYTOCIN 30UNITS IN 0.9% NaCl 500ML IV BAG As Ordered ONE (21:15)
[2024-07-07] MEDS ORDERED: MORPHINE PRES-FREE INJ 10 MG/10 ML VIAL As Ordered ONE (21:15)
[2024-07-07] MEDS ORDERED: ESMOLOL INJ 100MG/10ML VIAL As Ordered ONE (21:15)
[2024-07-07] MEDS ORDERED: KETOROLAC 60MG 2ML VIAL As Ordered ONE (21:15)
[2024-07-07] MEDS ORDERED: ACETAMINOPHEN 1000MG 100ML IV BAG As Ordered ONE (21:15)
[2024-07-07] MEDS ORDERED: fentaNYL 100 MCG/2 ML INJECTION As Ordered ONE (21:15)
[2024-07-07] MEDS ORDERED: ONDANSETRON 4MG 2ML VIAL As Ordered ONE (21:15)
[2024-07-07 21:26] LABS: CORD GAS ABE A -5.7; CORD GAS HCO3 A 21.9 MMOL/L; CORD GAS HCO3 V 20.2 MMOL/L; CORD GAS O2 SAT A 16.8 %; CORD GAS O2 SAT V 40.8 %; CORD GAS PCO2 A 50.8 mmHg; CORD GAS PCO2 V 41.9 mmHg; CORD GAS PH A 7.252 UNITS; CORD GAS PH V 7.3 UNITS; CORD GAS PO2 V 20.2 mmHg; CORD GAS SBC A 18.1 MMOL/L; CORD GAS SBC V 18.4 MMOL/L; CORD GAS TCO2 A 23.4 MMOL/L; CORD GAS TCO2 V 21.4 MMOL/L
[2024-07-07] MEDS ORDERED: SIMETHICONE 80MG CHEW TAB PO PRN (21:55)
[2024-07-07] MEDS ORDERED: RHOGAM 300MCG (1500IU) INJ IM SCH (21:55)
[2024-07-07] MEDS ORDERED: oxyCODONE 5MG TAB PO PRN (21:55)
[2024-07-08] VITALS (9 sets, daily range): BP systolic 102–130; BP diastolic 56–79; O2SAT 95–100
[2024-07-08] MEDS: ONDANSETRON 4MG 2ML VIAL IV PRN (00:07)
[2024-07-08] MEDS: LR 1,000 ML IV SCH (01:55)
[2024-07-08] MEDS: ACETAMINOPHEN 500 MG TAB PO SCH (01:58)
[2024-07-08] MEDS: KETOROLAC 30 MG/ML 1ML VIAL IV SCH (04:47)
[2024-07-08 07:19] LABS: HEMATOCRIT 29.9 % (36.0-47.0); HEMOGLOBIN 9.7 g/dl (12.0-15.5); MEAN CORPUSCULAR HEMOGLOBIN 24.1 pg (27.0-33.0); MEAN CORPUSCULAR HGB CONC 32.4 g/dl (32.0-36.5); MEAN CORPUSCULAR VOLUME 74.2 fl (80.0-96.0); PLATELET COUNT, AUTOMATED 338 10^3/uL (150-450); RED BLOOD COUNT 4.03 10^6/uL (4.00-5.40); WHITE BLOOD COUNT 19.8 10^3/uL (4.0-10.0)
[2024-07-08] MEDS: PRENATAL VITAMINS CHEWABLE TABLET PO SCH (10:35)
[2024-07-08] MEDS ORDERED: IBUP-1022 PO (11:42)
[2024-07-08] MEDS ORDERED: ACET-683 PO (11:42)
[2024-07-08] MEDS ORDERED: COLA100C5 PO (11:42)
[2024-07-08] MEDS ORDERED: OXYC-517 PO (11:42)
[2024-07-08] MEDS ORDERED: METOCLOPRAMIDE INJ 10MG/2ML VIAL IV PRN (21:00)
[2024-07-08] MEDS ORDERED: ONDANSETRON 4MG 2ML VIAL IV PRN (21:00)
[2024-07-08] MEDS: oxyCODONE 5MG TAB PO PRN (21:04)
[2024-07-08] MEDS: IBUPROFEN 600MG TAB PO SCH (23:49)
[2024-07-09 02:00] VITALS: BP 122/69; O2SAT 99
[2024-07-09 05:25] VITALS: BP 130/87; O2SAT 100
[2024-07-09] MEDS ORDERED: MEASLES,MUMPS,RUBELLA VACCINE INJ (MMR-II) SC.IMMUN ONE (09:00)
[2024-07-09] MEDS: DOCUSATE SODIUM 100MG CAPSULE PO PRN (09:51)
[2024-07-09 10:00] VITALS: BP 111/76; O2SAT 95
== END 2024-07-09 13:00 | disposition home or self-care (01) | DRG 540 ==
LOC: M LDO 15:37 → M LDI 17:11 → M OBS 07-07 23:26
PROVIDERS: ADMIT Obstetrics & Gynecology; ATTEND Obstetrics & Gynecology
PROC: 3E0P7VZ Introduction of Hormone into Female Reproductive, Via Natural or Artificial Opening (ICD-10-PCS; 2024-07-06)
PROC: 3E033VJ Introduction of Other Hormone into Peripheral Vein, Percutaneous Approach (ICD-10-PCS; 2024-07-06)
PROC: 10D00Z1 Extraction of Products of Conception, Low, Open Approach (ICD-10-PCS; principal; 2024-07-07 20:16)
DX: O64.8XX0 Obstructed labor due to other malposition and malpresentation, not applicable or unspecified (principal); O76 Abnormality in fetal heart rate and rhythm complicating labor and delivery; Z37.0 Single live birth; Z3A.40 40 weeks gestation of pregnancy

== ENCOUNTER 2024-07-23 17:02 | Emergency (ER) | payer MEDICAID, OTHER ==
[~2024-07-23] VITALS: Ht 149.9 cm; Wt 89.3 kg
[~2024-07-23 17:02] MED LIST changes: +ACET-683 PO; +COLA100C5 PO; +OXYC-517 PO
[2024-07-23 18:41] LABS: BASO # 0.1 10^3/uL (0.0-0.2); BASO % 1.4 % (0.0-1.0); EOS # 0.2 10^3/uL (0.0-0.5); EOS % 3.2 % (0.0-3.0); HEMATOCRIT 37.6 % (36.0-47.0); HEMOGLOBIN 11.4 g/dl (12.0-15.5); LYMPH # 2.3 10^3/uL (1.5-5.0); LYMPH % 34.9 % (24.0-44.0); MEAN CORPUSCULAR HEMOGLOBIN 22.7 pg (27.0-33.0); MEAN CORPUSCULAR HGB CONC 30.3 g/dl (32.0-36.5); MEAN CORPUSCULAR VOLUME 74.9 fl (80.0-96.0); MONO # 0.6 10^3/uL (0.0-0.8); MONO % 9.1 % (2.0-8.0); NEUTROPHILS # 3.3 10^3/uL (1.5-8.5); NEUTROPHILS % 51.1 % (36.0-66.0); PLATELET COUNT, AUTOMATED 497 10^3/uL (150-450); RED BLOOD COUNT 5.02 10^6/uL (4.00-5.40); WHITE BLOOD COUNT 6.5 10^3/uL (4.0-10.0)
[2024-07-23 18:55] LABS: ALBUMIN 3.4 G/DL (3.2-5.2); ALKALINE PHOSPHATASE 104 U/L (35-104); ALT/SGPT 14 U/L (7.0-40); AST/SGOT 9 U/L (<34); BILIRUBIN,DIRECT < 0.1 MG/DL (<0.4); BILIRUBIN,TOTAL 0.2 MG/DL (0.3-1.2); BLOOD UREA NITROGEN 12 MG/DL (9-23); CALCIUM LEVEL 9.8 MG/DL (8.5-10.1); CARBON DIOXIDE LEVEL 27 MMOL/L (20-31); CHLORIDE LEVEL 106 MMOL/L (98-107); CREATININE FOR GFR 0.69 MG/DL (0.55-1.30); GLOMERULAR FILTRATION RATE > 60.0 (>60); GLUCOSE, FASTING 84 MG/DL (60-100); POTASSIUM SERUM 4.6 MMOL/L (3.5-5.1); SODIUM LEVEL 139 MMOL/L (136-145); TOTAL PROTEIN 7.8 G/DL (5.7-8.2)
[2024-07-23 19:59] LABS: BASO # 0.1 10^3/uL (0.0-0.2); EOS # 0.2 10^3/uL (0.0-0.5); EOS % 2.8 % (0.0-3.0); HEMATOCRIT 41.2 % (36.0-47.0); HEMOGLOBIN 12.7 g/dl (12.0-15.5); LYMPH # 2.2 10^3/uL (1.5-5.0); MEAN CORPUSCULAR HEMOGLOBIN 22.8 pg (27.0-33.0); MEAN CORPUSCULAR HGB CONC 30.8 g/dl (32.0-36.5); MONO # 0.5 10^3/uL (0.0-0.8); MONO % 8.2 % (2.0-8.0); NEUTROPHILS # 2.9 10^3/uL (1.5-8.5); NEUTROPHILS % 49.8 % (36.0-66.0); PLATELET COUNT, AUTOMATED 523 10^3/uL (150-450); RED BLOOD COUNT 5.57 10^6/uL (4.00-5.40); WHITE BLOOD COUNT 5.7 10^3/uL (4.0-10.0)
[2024-07-23 21:35] LABS: ALBUMIN 3.6 G/DL (3.2-5.2); ALKALINE PHOSPHATASE 97 U/L (35-104); ALT/SGPT 12 U/L (7.0-40); AST/SGOT 12 U/L (<34); BILIRUBIN,DIRECT < 0.1 MG/DL (<0.4); BILIRUBIN,TOTAL 0.2 MG/DL (0.3-1.2); BLOOD UREA NITROGEN 11 MG/DL (9-23); CALCIUM LEVEL 9.6 MG/DL (8.5-10.1); CARBON DIOXIDE LEVEL 25 MMOL/L (20-31); CHLORIDE LEVEL 108 MMOL/L (98-107); CREATININE FOR GFR 0.65 MG/DL (0.55-1.30); GLOMERULAR FILTRATION RATE > 60.0 (>60); GLUCOSE, FASTING 92 MG/DL (60-100); SODIUM LEVEL 140 MMOL/L (136-145); TOTAL PROTEIN 8.1 G/DL (5.7-8.2)
[2024-07-23] MEDS ORDERED: ISOVUE-370 76% 100ML VIAL As Ordered ONE (21:50)
[2024-07-23] MEDS ORDERED: CEPH500T PO (22:36)
[2024-07-23] MEDS: CEPHALEXIN 500 MG CAP PO ONE (22:42)
[2024-07-23 22:43] VITALS: BP 121/81; TEMP 97.8; O2SAT 98
[2024-07-26] MEDS ORDERED: CLIN-250 PO (08:18)
== END 2024-07-23 22:44 | disposition home or self-care (01) ==
LOC: M ED 17:02
DX: L03.311 Cellulitis of abdominal wall (principal); G43.909 Migraine, unspecified, not intractable, without status migrainosus; J45.909 Unspecified asthma, uncomplicated; Z87.442 Personal history of urinary calculi; Z79.2 Long term (current) use of antibiotics
CPT/HCPCS: 36415; 74177; 80048; 80076; 81001; 83605; 85025; 87040; 87070; 87077; 87086; 87186; 87205; 99284; Q9967

== ENCOUNTER 2025-05-12 13:55 | Emergency (ER) | payer OTHER ==
[~2025-05-12] VITALS: Ht 149.9 cm; Wt 101.9 kg
[~2025-05-12 13:55] MED LIST changes: +CEPH500T PO; +CLIN-250 PO; -IBUP-1022 PO; +IBUP600T42 PO
[2025-05-12 14:45] LABS: KETONE, URINE AUTO RFX NEGATIVE (NEGATIVE); LEUKOCYTE ESTERASE UR AUTO RFX NEGATIVE (NEGATIVE); NITRITE, URINE AUTO RFX NEGATIVE (NEGATIVE); PLATELET COUNT, AUTOMATED 482 10^3/uL (150-450); RBC, URINE AUTO RFX 15 /HPF (0-3); SQUAM EPITHELIAL CELL UR AURFX 3 /HPF (0-6); WBC, URINE AUTO RFX 3 /HPF (0-3)
[2025-05-12 15:21] LABS: CALCIUM LEVEL 9.1 MG/DL (8.5-10.1); CARBON DIOXIDE LEVEL 26 MMOL/L (20-31); CHLORIDE LEVEL 103 MMOL/L (98-107); CREATININE FOR GFR 0.60 MG/DL (0.55-1.30); GLOMERULAR FILTRATION RATE > 90.0 (>60); HCG, SERUM QUANTITATIVE 5.1 MIU/ML (<4.2); POTASSIUM SERUM 4.2 MMOL/L (3.5-5.1); SODIUM LEVEL 139 MMOL/L (136-145)
[2025-05-12 16:06] VITALS: BP 129/80; TEMP 98.7; O2SAT 99
[2025-05-12] MEDS ORDERED: ONDA-282 PO (17:23)
== END 2025-05-12 17:40 | disposition home or self-care (01) ==
LOC: M ED 13:55
DX: N93.9 Abnormal uterine and vaginal bleeding, unspecified (principal); Z32.01 Encounter for pregnancy test, result positive; Z79.83 Long term (current) use of bisphosphonates; Z3A.00 Weeks of gestation of pregnancy not specified

== ENCOUNTER → 2025-05-14 | Outpatient (CLI) | payer OTHER ==
[~2025-05-14] MED LIST changes: +IBUP-1022 PO; -IBUP600T42 PO
== END ==
LOC: M PLALAB 14:05
PROVIDERS: ATTEND Physician Assistant Medical
DX: O26.859 Spotting complicating pregnancy, unspecified trimester (principal); Z3A.00 Weeks of gestation of pregnancy not specified

== ENCOUNTER → 2025-05-15 | Outpatient (REF) | payer OTHER | LOC: M LAB REF 17:53 | PROVIDERS: ATTEND Student in an Organized Health Care Education/Training Program | DX: N93.9 Abnormal uterine and vaginal bleeding, unspecified (principal) ==

== ENCOUNTER → 2025-05-30 | Outpatient (REF) | payer OTHER ==
[~2025-05-30] MED LIST changes: -IBUP-1022 PO; +IBUP600T42 PO
[2025-05-30 16:53] LABS: PLATELET COUNT, AUTOMATED 351 10^3/uL (150-450)
[2025-05-30 17:13] LABS: ESTIMATED AVERAGE GLUCOSE 114.0 MG/DL (60-110)
[2025-05-30 17:26] LABS: ALT/SGPT 31 U/L (7.0-40); AST/SGOT 16 U/L (<34); CALCIUM LEVEL 9.2 MG/DL (8.5-10.1); CARBON DIOXIDE LEVEL 28 MMOL/L (20-31); CHLORIDE LEVEL 103 MMOL/L (98-107); CHOLESTEROL LEVEL 166 MG/DL (<200); CHOLESTEROL RISK RATIO 3.34 (<5); CREATININE FOR GFR 0.62 MG/DL (0.55-1.30); GLOMERULAR FILTRATION RATE > 90.0 (>60); HCG, SERUM QUANTITATIVE < 2.6 MIU/ML (<4.2); LDL CHOLESTEROL 97.5 MG/DL (<100); NON-HDL-C 116.3 MG/DL; POTASSIUM SERUM 4.3 MMOL/L (3.5-5.1); SODIUM LEVEL 141 MMOL/L (136-145); TRIGLYCERIDES LEVEL 94 MG/DL (<150)
[2025-05-30 17:28] LABS: TOTAL 25(OH) VITAMIN D 8.1 NG/ML (20.0-100.0)
== END ==
LOC: M LAB REF 16:24
PROVIDERS: ATTEND Student in an Organized Health Care Education/Training Program
DX: N93.9 Abnormal uterine and vaginal bleeding, unspecified (principal); E55.9 Vitamin D deficiency, unspecified; Z68.41 Body mass index [BMI] 40.0-44.9, adult

== ENCOUNTER → 2025-07-04 | Outpatient (REF) | payer OTHER | LOC: M LAB REF 11:53 | PROVIDERS: ATTEND Physician Assistant | DX: J02.9 Acute pharyngitis, unspecified (principal) ==